=== PATIENT | female | born 1995 | race American Indian/Alaskan Native ===

== ENCOUNTER 2020-12-11 19:59 | Inpatient (IN) | payer OTHER ==
[2020-12-11] MEDS ORDERED: ACETAMINOPHEN 325 MG TAB PO PRN (20:39)
[2020-12-11] MEDS ORDERED: MINERAL OIL 30 ML ORAL LIQD PO PRN (20:39)
[2020-12-11] MEDS ORDERED: fentaNYL 100 MCG/2 ML INJ IV PRN (20:39)
[2020-12-11] MEDS ORDERED: TERBUTALINE 1 MG/1 ML INJ SUB-Q PRN (20:39)
[2020-12-11] MEDS ORDERED: ePHEDrine SULFATE 50 MG/1 ML INJ IV PRN (20:39)
[2020-12-11] MEDS ORDERED: hydrALAZINE 20 MG/1 ML INJ IV PRN (20:45)
[2020-12-11] MEDS ORDERED: MAGNESIUM SULFATE 4 GM/100 ML BAG IV ONE (20:46)
[2020-12-11] MEDS ORDERED: MAGNESIUM SULFATE 40GM/1000ML 40 GM/1,000 ML BAG IV SCH (21:00)
[2020-12-11] MEDS ORDERED: LIDOCAINE (2%) 20 MG/1 ML VIAL 20 ML MDV INFILTRATI ONE (21:00)
[2020-12-11] MEDS ORDERED: OXYTOCIN DRIP 30 UNITS/500 ML BAG IV SCH ×2 (21:00)
[2020-12-11 21:07] LABS: Hematocrit 33.6 % (30.3-42.9); Hemoglobin 11.1 gm/dl (10.1-14.3); Mean Corpuscular HGB Conc 33 % (30-34); Mean Corpuscular Volume 99 fl (79-97); Platelet Count 244 K/mm3 (140-440); Red Cell Distribution Width 14.7 % (13.2-15.2)
--- NOTE | 2020-12-11 21:08 | History and Physical Report ---
History of Present Illness Date of examination: 12/11/20 Date of admission: 12/11/2020 Chief complaint: Contractions History of present illness: 25 year old female presents to L&D with contractions at 40 weeks, 5 days gestation. Patient's BPs were noted to be elevated in triage so patient was admitted for augmentation of labor due to preeclampsia with severe features (by BP criteria). Patient received care at [facility]. records are not available but was able to look up records via computer. LMP 03/11/2020. EDC 12/06/2020. 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 labs are as follows: O+, antibody screen negative, rubella immune, varicella nonimmune, hepatitis B surface antigen negative, HIV negative, RPR nonreactive, pap smear LSIL, hemoglobin electrophoresis AA, AFP negative, 1 hour sugar test 134, gonorrhea negative, chlamydia negative, trichomonas negative, HSV 2 positive, GBS negative. Past History Past Medical History: other (heart murmur) Past Surgical History: other (EAB times 1) [facility] History: abnormal PAP smear (LSIL), herpes (positive HSV 2 serology (has been on Valtrex for suppression); denies lesions or prodromal symptoms), other (EAB times 1). denies: chlamydia, gonorrhea, hepatitis B, hepatitis C, HIV, syphilis, trichomonas Family/Genetic History: hypertension, other (prediabetes) Social history: single, smoking (former smoker but has not smoked during ), full code. denies: alcohol abuse, prescription drug abuse, IV drug use - Obstetrical History Expected Date of Delivery: 12/06/20 Actual Gestation: 40 Week(s) 5 Day(s) : 2 Para: 0 Hx # Term Pregnancies: 0 Number of Pregnancies: 0 Spontaneous Abortions: 0 Induced : 1 Number of Living Children: 0 Medications and Allergies Allergies Allergy/AdvReac Type Severity Reaction Status Date / Time No Known Allergies Allergy Verified 02/14/16 22:32 Home Medications Medication Instructions Recorded Confirmed Last Taken Type Ferrous Sulfate 325 mg PO BID 12/11/20 12/11/20 12/11/20 15:00 History Valacyclovir HCl [Valtrex] 1,000 mg PO DAILY 12/11/20 12/11/20 12/11/20 09:00 History Active Meds: Active Medications Acetaminophen (Acetaminophen 325 Mg Tab) 650 mg PO Q4H PRN PRN Reason: Pain, Mild (1-3) Ephedrine Sulfate (Ephedrine Sulfate 50 Mg/1 Ml Inj) 10 mg IV Q2M PRN PRN Reason: Hypotension Fentanyl (Fentanyl 100 Mcg/2 Ml Inj) 100 mcg IV Q2H PRN PRN Reason: Pain,Severe (7-10) LABOR PAIN Hydralazine HCl (Hydralazine 20 Mg/1 Ml Inj) 5 mg IV Q30MIN PRN PRN Reason: Hypertension Oxytocin/Sodium Chloride (Pitocin/Ns 30 Unit/500ml) 30 units in 500 mls @ 2 mls/hr IV TITR [facility]RYSTAL; Protocol Lactated Ringer's (Lactated Ringers) 1,000 mls @ 125 mls/hr IV DIRECT CHRYSTAL Oxytocin/Sodium Chloride (Pitocin/Ns 30 Unit/500ml) 30 units in 500 mls @ 40 mls/hr IV TITR CHRYSTAL; Protocol Magnesium Sulfate (Magnesium Sulfate 40gm/1000ml) 40 gm in 1,000 mls @ 50 mls/hr IV DIRECT CHRYSTAL Magnesium Sulfate (Magnesium Sulfate 4gm/100ml) 4 gm in 100 mls @ 300 mls/hr IV ONCE ONE Stop: 12/11/20 21:05 Labetalol HCl (Labetalol 100 Mg Tab) 200 mg PO BID CHRYSTAL Lidocaine (Lidocaine (2%) 20 Mg/1 Ml Vial 20 Ml Mdv) 20 ml INFILTRATI ONCE ONE Stop: 12/11/20 21:01 Mineral Oil (Mineral Oil 30 Ml Oral Liqd) 30 ml PO QHS PRN PRN Reason: Constipation Terbutaline Sulfate (Terbutaline 1 Mg/1 Ml Inj) 0.25 mg SUB-Q ONCE PRN PRN Reason: Hyperstimulation/Hypertonicity Valacyclovir HCl (Valacyclovir 500 Mg Tab) 500 mg PO BID CHRYSTAL Review of Systems All systems: negative (contractions) - Vital Signs Vital signs: Vital Signs Pulse BP 72 123/79 12/11/20 20:18 12/11/20 20:18 Temp Pulse Resp BP Pulse Ox 97.9 F 96 H 18 166/71 12/11/20 20:31 12/11/20 20:31 12/11/20 20:31 12/11/20 20:31 - Physical Exam Abdomen: Positive: normal appearance, soft. Negative: distention, tenderness, guarding, rigidity Genitourinary (Female): Positive: normal external genitalia, normal perenium. Negative: perineal/vulvar lesions Vagina: Positive: normal moisture Uterus: Positive: enlarged. Negative: tender Anus/Rectum: Positive: normal perianal skin Extremities: Negative: tenderness, edema - Obstetrical FHR: category 1 Uterine Contraction Monitor Mode: External Cervical Dilatation: 3 Cervical Effacement Percentage: 70 station: -2 Uterine Contraction Pattern: Irregular Uterine Contraction Intensity: Mild Results All other labs normal. Assessment and Plan A: at 40 weeks, 5 days gestation. Early labor. Preeclampsia with severe features (by BP criteria). GBS negative. HSV 2 positive serology. P: Admit. Continuous EFM. IV magnesium sulfate. Serial BPs; preeclamptic labs. Labetalol for control of BP. Hydralazine for severe range BPs. Continue Valtrex suppression of HSV 2. Pitocin augmentation of labor. Discussed the above plan with patient and her S.O. Patient states she is in agreement with this POC. Informed Dr. Benitez re: magnesium sulfate started for preeclampsia with severe features.
[2020-12-11 21:26] LABS: Alanine Aminotransferase 9 units/L (7-56); Albumin 3.7 g/dL (3.9-5); Blood Urea Nitrogen 7 mg/dL (7-17); Calcium 9.1 mg/dL (8.4-10.2); Hemolysis Index 17; Uric Acid 4.5 mg/dL (3.5-7.6)
[2020-12-11] MEDS: LACTATED RINGERS 1,000 ML IV SCH (21:27)
[2020-12-11 21:28] LABS: BUN/Creatinine Ratio 14
[2020-12-11 21:43] LABS: Amphetamine Screen,Urine Negative; Bacteria,Urine 1+ /HPF (Negative); Benzodiazepines Screen,Urine Negative; Bilirubin,Urine NEG (Negative); Blood,Urine NEG (Negative); Cannabinoid Screen,Urine Negative; Cocaine Screen,Urine Negative; Color,Urine Yellow (Yellow); Methadone Screen,Urine Negative; Mucus,Urine FEW /HPF; Opiate Screen,Urine Negative; WBC,Urine < 1.0 /HPF (0.0-6.0)
[2020-12-11] MEDS: valACYclovir 500 MG TAB PO SCH (22:31)
[2020-12-12] MEDS ORDERED: NALOXONE 2 MG/2 ML INJ IV PRN (01:42)
--- NOTE | 2020-12-12 01:42 | Anesthesia Consultation ---
Anesthesia Consult and Med Hx Date of service: 12/12/20 - Airway Anesthetic Teeth Evaluation: Good ROM Head & Neck: Adequate Mental/Hyoid Distance: Adequate Mallampati Class: Class II Intubation Access Assessment: Probably Good - Pulmonary Exam CTA: Yes - Cardiac Exam Cardiac Exam: RRR - Pre-Operative Health Status ASA Pre-Surgery Classification: ASA3 Proposed Anesthetic Plan: Epidural - Pulmonary Hx Asthma: No COPD: No Hx Pneumonia: No - Cardiovascular System Hx Hypertension: Yes - Central Nervous System Hx Seizures: No Hx Psychiatric Problems: No - Endocrine Hx Renal Disease: No Hx End Stage Renal Disease: No Hx Hypothyroidism: No Hx Hyperthyroidism: No - Hematic Hx Anemia: Yes Hx Sickle Cell Disease: No - Other Systems Hx Alcohol Use: No
[2020-12-12] MEDS ORDERED: fentaNYL-BUPIV 2 MCG/ML-0.125% 200 MCG/100 ML BAG EPIDURAL SCH (02:00)
--- NOTE | 2020-12-12 02:03 | Progress Note ---
Labor Epidural - Labor Epidural Start Time: 01:48 Stop Time: 01:58 Performed by:: SHEILA TRAYLOR Procedure: Patient is requesting epidural for labor pain. H&P, and labs reviewed. Procedure explained, questions answered, consent obtained. Patient in sitting position with blood pressure cuff and pulse ox on and working. Timeout performed immediately before start of procedure. Sterile betadine prep/drape. 3 mL 1% lidocaine skin wheal at L[3]-L[4]. 18-gauge Yoox Grouptead epidural needle advanced to [id number] with saline at [7] cm. 27-gauge spinal needle advanced until clear, free-flowing CSF. Intrathecal dexmedetomidine [5] mcg administered and needle removed. Epidural catheter advanced to [12] cm, negative aspiration for blood and csf, negative test dose 3 ml 1.5% lidocaine with epinephrine. Sterile steri-strips and tegaderm applied, followed by tape reinforcement. Patient tolerated procedure well.
[2020-12-12] MEDS: ePHEDrine SULFATE 50 MG/1 ML INJ IV PRN ×2 (02:19→02:46)
--- NOTE | 2020-12-12 04:46 | Event Note ---
Date: 12/12/20 Was notified by nurse at 04:05 AM of minimal FHR variability on FHR tracing. Nurse states patient's water broke at 11:50 PM with clear fluid and that patient now has an epidural. Performed SVE and found cervix is 6/80/-2 with fetus in OP position. Small FHR acceleration noted with SVE. Several early FHR decelerations noted. Patient has had IV fluid bolus and oxygen and lateral positioning. Patient is receiving magnesium sulfate. Contractions are every 2-6 minutes, uterus palpates soft between contractions. Consulted with Dr. Benitez re: FHR tracing at 04:15 AM and she viewed tracing and states minimal variability most likely due to magnesium sulfate and OK to allow labor to continue.
--- NOTE | 2020-12-12 08:09 | Event Note ---
Date: 12/12/20.
[2020-12-12] MEDS: valACYclovir 500 MG TAB PO SCH (09:57)
[2020-12-12] MEDS: LACTATED RINGERS 1,000 ML IV SCH (11:50)
[2020-12-12] MEDS ORDERED: miSOPROStol 200 MCG TAB ONE (13:07)
[2020-12-12] MEDS ORDERED: miSOPROStol 200 MCG TAB PR ONE (13:10)
[2020-12-12] MEDS ORDERED: LANOLIN/ZINC/DIMETHICONE (LANSINOH) 7 GM TP PRN (14:08)
[2020-12-12] MEDS ORDERED: WITCH HAZEL/ GLYCERIN PAD TP PRN (14:08)
[2020-12-12] MEDS ORDERED: MAGNESIUM HYDROXIDE (MOM) ORAL LIQD UDC PO PRN (14:08)
[2020-12-12] MEDS ORDERED: HYDROcodone/ACETAMINOPHEN 5-325 MG TAB PO PRN (14:08)
--- NOTE | 2020-12-12 14:14 | Procedure Note ---
OB Delivery Note - Delivery Date of Delivery: 12/12/20 Surgeon: MANDY RIVERA Estimated blood loss: other (400 cc) - Vaginal Intrapartum events: meconium, preeclampsia (preeclampsia with severe features (on magnesium sulfate)) Delivery induction: oxytocin Delivery monitor: external FHT, external uterine Route of delivery: Delivery placenta: manual Delivery cord: nuchal cord, 3 umbilical vessels Episiotomy: none Delivery laceration: 2nd degree Delivery repair: vicryl Anesthesia: local, epidural Delivery comments: Spontaneous vaginal delivery at 12:58 of liveborn male infant weighing 8 lb. 3 oz. over 2nd degree perineal laceration with apgars of 7/9. Had labor augmented for severe preeclampsia and was on magnesium sulfate during her labor and at time of delivery. Epidural anesthesia. Meconium stained amniotic fluid; NICU team present for delivery. of baby was atraumatic; nuchal cord times 1, reduced along body as baby delivered. Baby placed skin to skin with mom immediately after delivery. Spontaneous cry and respirations; baby bulb suctioned and dried with warm towels. 3 vessel cord double clamped and cut and baby taken to radiant warmer for further suctioning. Cord blood obtained. Vaginal bleeding noted shortly after delivery of baby; portion of membranes presenting; placenta presenting in pieces. EBL 400 cc. Manual removal of placenta and membranes performed at 13:05. IV Pitocin and rectal cytotec given. Fundus firmed with these medications and with bimaual uterine massage. Bedside US ordered and [employer] states she sees no retained products. Repair of 2nd degree perineal laceration with 2-0 vicryl under Lidocaine local. No other lacerations noted. Vaginal sweep negative. Sponge and instrument counts correct. Mother and baby stable. Placenta to path. IV antibiotics started for 24 hours due to manual removal of placenta. Patient to continue magnesium sulfate for 24 hours post delivery.
--- NOTE | 2020-12-12 14:14 | Ultrasound Report ---
ULTRASOUND PELVIS INDICATION / CLINICAL INFORMATION: CHECK FOR RETAINED PRODUCTS. TECHNIQUE: Transabdominal. Limited views were obtained of the uterus. Duplex Color Doppler used: No. COMPARISON: 12/10/2020. FINDINGS: UTERUS: Enlarged uterus consistent with provided history of recent status. No evidence of retained placental products within the endometrium. ADDITIONAL FINDINGS: None. IMPRESSION: 1. No retained placental products within the endometrium. 2. Enlarged uterus consistent with provided history of status. Signer Name: Feliz Vallejo MD Signed: 12/12/2020 2:10 PM Workstation Name: [id number]
[2020-12-12] MEDS ORDERED: GENTAMICIN 100 MG in SODIUM CHLORIDE 0.9% 100 ML IV SCH (14:15)
[2020-12-12] MEDS ORDERED: GENTAMICIN/NS 100 MG/100 ML 100 MG/100 ML BAG IV SCH (15:00)
[2020-12-12] MEDS: GENTAMICIN 100 MG in SODIUM CHLORIDE 0.9% 100 ML IV SCH ×2 (15:16→22:49)
[2020-12-12] MEDS: AMPICILLIN/NS 2 GM/100 ML 2 GM/100 ML BAG IV SCH ×2 (16:12→21:14)
[2020-12-12] MEDS: DOCUSATE SODIUM 100 MG CAP PO SCH ×2 (17:44→22:38)
[2020-12-12] MEDS: FERROUS SULFATE 325 MG TAB PO SCH (22:38)
[2020-12-13] MEDS ORDERED: LACTATED RINGERS 1,000 ML IV SCH (03:15)
[2020-12-13] MEDS: AMPICILLIN/NS 2 GM/100 ML 2 GM/100 ML BAG IV SCH ×3 (03:27→16:28)
[2020-12-13 03:49] LABS: Hematocrit 25.7 % (30.3-42.9); Hemoglobin 8.8 gm/dl (10.1-14.3)
[2020-12-13] MEDS: GENTAMICIN 100 MG in SODIUM CHLORIDE 0.9% 100 ML IV SCH ×2 (06:50→15:36)
[2020-12-13] MEDS: LACTATED RINGERS 1,000 ML IV SCH (07:11)
--- NOTE | 2020-12-13 11:42 | Progress Note ---
Assessment and Plan A: day 1 S/P . Preeclampsia with severe features. Anemia. P: Continue iron supplementation. Continue magnesium sulfate until 24 hours post delivery. Subjective - Subjective Date of service: 12/13/20 Principal diagnosis: day 1 S/P ; preeclampsia Interval history: day 1 S/P ; still receiving magnesium sulfate for preeclampsia with severe features. Patient denies headache, visual disturbance, chest pain, cough, shortness of breath, nausea or vomiting. Still has Guardado catheter. Eating withou difficulty. Passing gas. Patient reports: appetite normal, pain well controlled, flatus, no nauseated Bronson: doing well Objective - Vital Signs Latest vital signs: Vital Signs Temp Pulse Resp BP Pulse Ox 12/13/20 11:33 75 99 12/13/20 11:28 80 100 12/13/20 11:23 74 98 12/13/20 11:18 76 100 12/13/20 11:13 86 98 12/13/20 11:08 87 100 12/13/20 11:03 81 109/55 98 12/13/20 10:58 87 99 12/13/20 10:53 87 99 12/13/20 10:48 81 97 12/13/20 10:43 89 99 12/13/20 10:38 89 99 12/13/20 10:33 89 99 12/13/20 10:28 81 100 12/13/20 10:23 79 99 12/13/20 10:18 97 H 99 12/13/20 10:13 80 99 12/13/20 10:08 95 H 99 12/13/20 10:03 78 130/60 99 12/13/20 09:58 96 H 99 12/13/20 09:53 93 H 98 12/13/20 09:48 75 98 12/13/20 09:43 78 98 12/13/20 09:38 76 98 12/13/20 09:33 76 99 12/13/20 09:28 86 99 12/13/20 09:23 76 98 12/13/20 09:18 79 98 12/13/20 09:13 81 99 12/13/20 09:08 77 98 12/13/20 09:03 83 121/56 99 12/13/20 08:58 79 99 12/13/20 08:53 79 100 12/13/20 08:48 86 99 12/13/20 08:43 84 100 12/13/20 08:38 95 H 100 12/13/20 08:33 87 98 12/13/20 08:28 95 H 98 12/13/20 08:23 86 99 12/13/20 08:18 94 H 99 12/13/20 08:13 91 H 98 12/13/20 08:08 94 H 99 12/13/20 08:03 94 H 99 12/13/20 07:58 84 98 12/13/20 07:53 86 99 12/13/20 07:48 83 98 12/13/20 07:43 92 H 100 12/13/20 07:38 82 98 12/13/20 07:33 89 99 12/13/20 07:28 89 98 12/13/20 07:23 89 100 12/13/20 07:18 83 98 12/13/20 07:13 80 99 12/13/20 07:08 83 98 12/13/20 07:03 79 109/57 99 12/13/20 06:58 89 99 12/13/20 06:53 81 97 12/13/20 06:48 86 99 12/13/20 06:43 86 99 12/13/20 06:38 81 98 12/13/20 06:33 83 98 12/13/20 06:28 93 H 100 12/13/20 06:23 85 99 12/13/20 06:18 96 H 99 12/13/20 06:13 85 99 12/13/20 06:08 72 98 12/13/20 06:03 82 120/76 97 12/13/20 05:58 89 99 12/13/20 05:53 90 99 12/13/20 05:48 94 H 99 12/13/20 05:43 100 H 100 12/13/20 05:38 88 100 12/13/20 05:33 88 100 12/13/20 05:28 91 H 99 12/13/20 05:23 89 99 12/13/20 05:18 87 100 12/13/20 05:13 98 H 100 12/13/20 05:08 82 100 12/13/20 05:03 83 114/52 98 12/13/20 04:58 82 100 12/13/20 04:53 85 99 12/13/20 04:48 83 100 12/13/20 04:43 82 98 12/13/20 04:38 83 99 12/13/20 04:33 94 H 99 12/13/20 04:28 91 H 99 12/13/20 04:23 89 99 12/13/20 04:18 87 99 12/13/20 04:13 89 98 12/13/20 04:08 82 98 12/13/20 04:03 84 99 12/13/20 04:02 81 118/62 12/13/20 03:58 81 97 12/13/20 03:53 81 97 12/13/20 03:48 80 98 12/13/20 03:43 83 97 12/13/20 03:38 80 99 12/13/20 03:33 84 97 12/13/20 03:28 86 97 12/13/20 03:23 84 98 12/13/20 03:18 81 98 12/13/20 03:13 79 98 12/13/20 03:08 82 98 12/13/20 03:03 88 96 12/13/20 03:02 82 111/56 12/13/20 02:58 79 98 12/13/20 02:53 80 97 12/13/20 02:48 80 97 12/13/20 02:43 80 97 12/13/20 02:38 81 97 12/13/20 02:33 81 97 12/13/20 02:28 83 97 12/13/20 02:23 83 97 12/13/20 02:18 82 98 12/13/20 02:13 87 98 12/13/20 02:08 81 98 12/13/20 02:03 83 117/65 99 12/13/20 01:58 83 100 12/13/20 01:53 86 100 12/13/20 01:48 81 100 12/13/20 01:43 89 100 12/13/20 01:38 91 H 100 12/13/20 01:33 89 99 12/13/20 01:28 83 99 12/13/20 01:23 88 99 12/13/20 01:18 90 100 12/13/20 01:13 86 100 12/13/20 01:08 85 99 12/13/20 01:03 90 100 12/13/20 01:02 95 H 129/72 12/13/20 00:58 90 100 12/13/20 00:53 91 H 99 12/13/20 00:48 88 99 12/13/20 00:43 89 99 12/13/20 00:38 89 100 12/13/20 00:33 89 98 12/13/20 00:28 85 98 12/13/20 00:23 107 H 99 12/13/20 00:18 105 H 99 12/13/20 00:13 83 98 12/13/20 00:08 82 98 12/13/20 00:03 89 97 12/13/20 00:02 85 109/59 12/12/20 23:58 81 97 12/12/20 23:53 80 98 12/12/20 23:48 88 97 12/12/20 23:43 84 97 12/12/20 23:38 83 97 12/12/20 23:33 81 97 12/12/20 23:28 84 97 12/12/20 23:23 80 98 12/12/20 23:18 78 98 12/12/20 23:13 80 99 12/12/20 23:08 79 99 12/12/20 23:03 74 100 12/12/20 23:02 78 119/55 12/12/20 22:58 80 100 12/12/20 22:53 92 H 100 12/12/20 22:48 87 100 12/12/20 22:43 89 100 12/12/20 22:38 89 100 12/12/20 22:33 85 100 12/12/20 22:28 87 100 12/12/20 22:23 85 100 12/12/20 22:18 86 100 12/12/20 22:13 79 100 12/12/20 22:08 85 100 12/12/20 22:03 89 100 12/12/20 22:02 84 112/70 12/12/20 21:58 85 100 12/12/20 21:53 87 100 12/12/20 21:48 87 100 12/12/20 21:43 88 100 12/12/20 21:38 89 100 12/12/20 21:33 93 H 100 12/12/20 21:28 92 H 100 12/12/20 21:23 91 H 100 12/12/20 21:18 97 H 100 12/12/20 21:13 84 100 12/12/20 21:08 90 100 12/12/20 21:03 94 H 100 12/12/20 21:02 91 H 143/90 12/12/20 20:58 96 H 100 12/12/20 20:53 92 H 99 12/12/20 20:48 100 H 100 12/12/20 20:43 90 100 12/12/20 20:38 87 100 12/12/20 20:33 87 100 12/12/20 20:28 93 H 100 12/12/20 20:23 88 100 12/12/20 20:18 91 H 100 12/12/20 20:13 90 100 12/12/20 20:08 89 100 12/12/20 20:03 88 100 12/12/20 19:58 94 H 100 12/12/20 19:53 88 100 12/12/20 19:49 98.6 F 89 18 136/70 12/12/20 19:48 88 100 12/12/20 19:43 91 H 100 12/12/20 19:38 93 H 99 12/12/20 19:34 101 H 124/67 12/12/20 19:33 102 H 100 12/12/20 19:28 93 H 98 12/12/20 19:23 94 H 100 12/12/20 19:19 96 H 121/66 12/12/20 19:18 91 H 100 12/12/20 19:13 93 H 100 12/12/20 19:08 91 H 100 12/12/20 19:04 96 H 142/66 12/12/20 19:03 98 H 99 12/12/20 18:58 101 H 100 12/12/20 18:53 103 H 100 12/12/20 18:49 96 H 133/59 12/12/20 18:48 92 H 99 12/12/20 18:43 96 H 100 12/12/20 18:38 100 H 100 12/12/20 18:34 87 141/67 12/12/20 18:33 90 100 12/12/20 18:28 88 100 12/12/20 18:23 86 100 12/12/20 18:19 86 148/72 12/12/20 18:18 86 99 12/12/20 18:13 85 100 12/12/20 18:08 89 100 12/12/20 18:04 85 145/67 12/12/20 18:03 87 100 12/12/20 17:58 89 100 12/12/20 17:53 95 H 100 12/12/20 17:49 84 141/67 12/12/20 17:48 86 100 12/12/20 17:43 91 H 100 12/12/20 17:38 87 100 12/12/20 17:34 87 136/64 12/12/20 17:33 88 100 12/12/20 17:28 87 99 12/12/20 17:23 91 H 100 12/12/20 17:19 85 137/73 12/12/20 17:18 88 100 12/12/20 17:13 94 H 99 12/12/20 17:08 96 H 100 12/12/20 17:04 93 H 137/85 12/12/20 17:03 92 H 100 12/12/20 16:58 88 100 12/12/20 16:53 92 H 100 12/12/20 16:49 97 H 139/79 12/12/20 16:48 102 H 100 12/12/20 16:43 95 H 100 12/12/20 16:38 86 100 12/12/20 16:34 87 133/81 12/12/20 16:33 85 100 12/12/20 16:28 92 H 100 12/12/20 16:23 90 100 12/12/20 16:19 86 128/74 12/12/20 16:18 94 H 100 12/12/20 16:13 88 100 12/12/20 16:08 90 100 12/12/20 16:04 85 147/79 12/12/20 16:03 87 100 12/12/20 15:58 84 99 12/12/20 15:53 80 100 12/12/20 15:49 82 139/76 12/12/20 15:48 83 100 12/12/20 15:43 85 100 12/12/20 15:38 88 100 12/12/20 15:34 84 143/73 12/12/20 15:33 85 100 12/12/20 15:28 87 100 12/12/20 15:23 86 100 12/12/20 15:19 86 136/69 12/12/20 15:18 85 100 12/12/20 15:13 82 100 12/12/20 15:08 79 100 12/12/20 15:04 79 132/74 12/12/20 15:03 80 100 12/12/20 15:00 98.3 F 12/12/20 14:58 80 99 12/12/20 14:53 99 H 100 12/12/20 14:49 88 133/79 12/12/20 14:48 92 H 99 12/12/20 14:43 90 99 12/12/20 14:38 83 100 12/12/20 14:34 84 136/65 12/12/20 14:33 89 100 12/12/20 14:20 98 H 143/74 12/12/20 14:19 82 100 12/12/20 14:14 89 99 12/12/20 14:09 90 99 12/12/20 14:04 87 136/63 99 12/12/20 13:59 95 H 100 12/12/20 13:54 94 H 100 12/12/20 13:49 91 H 132/64 100 12/12/20 13:44 94 H 100 12/12/20 13:39 95 H 100 12/12/20 13:34 99 H 133/62 100 12/12/20 13:29 99 H 100 12/12/20 13:24 102 H 100 12/12/20 13:21 94 H 94 12/12/20 13:19 93 H 127/61 93 12/12/20 13:15 96 H 94 12/12/20 13:14 97 H 100 12/12/20 13:09 111 H 100 12/12/20 13:06 20 L 12/12/20 13:04 115 H 154/76 99 12/12/20 12:59 108 H 100 12/12/20 12:54 109 H 100 12/12/20 12:49 110 H 100 12/12/20 12:44 107 H 100 12/12/20 12:39 107 H 100 12/12/20 12:34 130 H 148/84 100 12/12/20 12:29 105 H 100 12/12/20 12:24 129 H 100 12/12/20 12:19 105 H 140/84 99 12/12/20 12:14 102 H 100 12/12/20 12:09 98 H 100 12/12/20 12:04 107 H 126/69 97 12/12/20 11:59 110 H 100 12/12/20 11:54 95 H 100 12/12/20 11:49 98 H 125/59 100 12/12/20 11:44 94 H 100 12/12/20 11:39 100 H 99 Intake and Output 12/12/20 12/13/20 12/13/20 23:59 07:59 15:59 Intake Total 1660 1160 Output Total 2800 1850 Balance -1140 -690 Intake: IV 1300 200 AMPICILLIN/NS 2 GM/100 ML 200 100 2 gm In 100 ml @ 100 mls /hr IV Q6H [facility]AL Rx#: [id number] Gentamicin 100 mg In NaCl 100 0.9% 100 ml @ 195.122 mls/hr IV Q8H [facility] Rx#: [id number] Lactated Ringers 1,000 ml 1000 @ 125 mls/hr IV DIRECT CH[facility]STAL Rx#:[id number] Right Distal Port Hand 100 Oral 360 960 Output: Urine 2800 1850 Indwelling Catheter 2800 1850 Other: Total, Intake Amount 360 360 Total, Output Amount 400 150 - Exam Cardiovascular: Present: Regular rate, Other (murmur heard (pt. has a known heart murmur and has seen cardiology during )) Lungs: Present: Clear to auscultation Abdomen: Present: normal appearance, soft, normal bowel sounds. Absent: distention, tenderness, guarding, rigidity Uterus: Present: normal, firm, fundal height below umbilicus. Absent: bogginess, tenderness Extremities: Present: normal. Absent: tenderness, edema - Labs Labs: Abnormal lab results 12/12/20 12/12/20 12/13/20 Range/Units 14:27 21:07 03:39 Hgb (10.1-14.3) gm/dl Hct (30.3-42.9) % Magnesium 3.90 H 3.80 H 3.80 H (1.7-2.3) mg/dL 12/13/20 12/13/20 Range/Units 03:39 09:51 Hgb 8.8 L (10.1-14.3) gm/dl Hct 25.7 L D (30.3-42.9) % Magnesium 3.40 H (1.7-2.3) mg/dL
[2020-12-13] MEDS: DOCUSATE SODIUM 100 MG CAP PO SCH ×2 (12:09→22:07)
[2020-12-13] MEDS: FERROUS SULFATE 325 MG TAB PO SCH ×2 (12:09→22:07)
--- NOTE | 2020-12-13 14:44 | Post Anesthesia Evaluation ---
- Post Anesthesia Evaluation Patient Participated: Yes Airway Patent: Yes Stable Respiratory Function: Yes Nausea/Vomiting: No Temp > 96.8F: Yes Pain Manageable: Yes Adequeate Hydration: Yes Anesthesia Complications: No Block Receding Appropriately: Yes
[2020-12-13 19:47] LABS: Hematocrit 27.1 % (30.3-42.9); Hemoglobin 8.8 gm/dl (10.1-14.3); Mean Corpuscular HGB Conc 33 % (30-34); Mean Corpuscular Volume 100 fl (79-97); Platelet Count 218 K/mm3 (140-440); Red Blood Count 2.71 M/mm3 (3.65-5.03)
[2020-12-13 20:07] LABS: Alanine Aminotransferase 9 units/L (7-56); Albumin 3.2 g/dL (3.9-5); BUN/Creatinine Ratio 14; Blood Urea Nitrogen 7 mg/dL (7-17); Calcium 8.1 mg/dL (8.4-10.2); Hemolysis Index 8
[2020-12-13 20:56] LABS: RBC Morphology Normal; Total Cells Counted 100
--- NOTE | 2020-12-14 07:27 | Progress Note ---
Assessment and Plan A: day 2 S/P . Anemia. BPs normal now. P: Discharge OK'd by Dr. Benitez. Discussed with patient discharge instructions and warning signs. Advised patient to continue taking her vitamins and iron supplements at home. Advised patient to avoid intercourse, driving, lifting, and housework. Advised patient to continue taking Labetalol 200 mg po BID at home and Rx was sent to patient's pharmacy. Advised patient to follow up at [facility] in 2 days for BP check. Patient voiced understanding of all instructions. Subjective - Subjective Date of service: 12/14/20 Principal diagnosis: day 2 S/P ; preeclampsia Interval history: Patient cleared for discharge today by Dr. Benitez. Patient has no complaints today; feels good and wants to go home. Patient reports: appetite normal, voiding normally, pain well controlled, flatus, ambulating normally, no dizzy ambulation, no nauseated [place]: doing well Objective - Vital Signs Latest vital signs: Vital Signs Temp Pulse Resp BP BP BP Pulse Ox 12/14/20 04:51 98.0 F 76 20 117/52 99 12/14/20 00:30 98.1 F 87 18 119/43 100 12/13/20 22:10 98.8 F 78 18 118/60 12/13/20 22:06 78 118/60 12/13/20 14:10 98.5 F 79 18 109/61 100 12/13/20 12:17 64 90 12/13/20 12:13 84 99 12/13/20 12:10 88 144/55 12/13/20 12:09 94 H 144/55 12/13/20 12:08 83 99 12/13/20 12:03 82 118/56 99 12/13/20 11:58 78 98 12/13/20 11:53 86 98 12/13/20 11:48 81 99 12/13/20 11:43 80 100 12/13/20 11:38 88 99 12/13/20 11:33 75 99 12/13/20 11:28 80 100 12/13/20 11:23 74 98 12/13/20 11:18 76 100 12/13/20 11:13 86 98 12/13/20 11:08 87 100 12/13/20 11:03 81 109/55 98 12/13/20 10:58 87 99 12/13/20 10:53 87 99 12/13/20 10:48 81 97 12/13/20 10:43 89 99 12/13/20 10:38 89 99 12/13/20 10:33 89 99 12/13/20 10:28 81 100 12/13/20 10:23 79 99 12/13/20 10:18 97 H 99 12/13/20 10:13 80 99 12/13/20 10:08 95 H 99 12/13/20 10:03 78 130/60 99 12/13/20 09:58 96 H 99 12/13/20 09:53 93 H 98 12/13/20 09:48 75 98 12/13/20 09:43 78 98 12/13/20 09:38 76 98 12/13/20 09:33 76 99 12/13/20 09:28 86 99 12/13/20 09:23 76 98 12/13/20 09:18 79 98 12/13/20 09:13 81 99 12/13/20 09:08 77 98 12/13/20 09:03 83 121/56 99 12/13/20 09:00 98 F 12/13/20 08:58 79 99 12/13/20 08:53 79 100 12/13/20 08:48 86 99 12/13/20 08:43 84 100 12/13/20 08:38 95 H 100 12/13/20 08:33 87 98 12/13/20 08:28 95 H 98 12/13/20 08:23 86 99 12/13/20 08:18 94 H 99 12/13/20 08:13 91 H 98 12/13/20 08:08 94 H 99 12/13/20 08:03 94 H 99 12/13/20 07:58 84 98 12/13/20 07:53 86 99 12/13/20 07:48 83 98 12/13/20 07:43 92 H 100 12/13/20 07:38 82 98 12/13/20 07:33 89 99 12/13/20 07:28 89 98 Intake and Output 12/13/20 12/13/20 12/14/20 15:59 23:59 07:59 Intake Total 100 300 500 Output Total 1500 300 Balance 100 -1200 200 Intake: IV 100 100 100 AMPICILLIN/NS 2 GM/100 ML 100 2 gm In 100 ml @ 100 mls /hr IV Q6H [facility] Rx#: [id number] Right Distal Port Hand 100 100 Oral 200 400 Output: Urine 1500 300 Indwelling Catheter 1500 300 Other: Total, Intake Amount 200 200 Total, Output Amount 900 300 # Voids Indwelling Catheter 1 - Exam Cardiovascular: Present: Regular rate, Other (murmur heard (pt. has known heart murmur and has already been evaluated)) Lungs: Present: Clear to auscultation Abdomen: Present: normal appearance, soft. Absent: distention, tenderness, guarding, rigidity Uterus: Present: normal, firm, fundal height below umbilicus. Absent: bogginess, tenderness Extremities: Present: normal. Absent: tenderness, edema - Labs Labs: Abnormal lab results 12/13/20 12/13/20 12/13/20 Range/Units 09:51 19:20 19:20 WBC 14.0 H (4.5-11.0) K/mm3 RBC 2.71 L (3.65-5.03) M/mm3 Hgb 8.8 L (10.1-14.3) gm/dl Hct 27.1 L (30.3-42.9) % MCV 100 H (79-97) fl MCH 33 H (28-32) pg Seg Neuts % (Manual) 81.0 H (40.0-70.0) % Lymphocytes % (Manual) 11.0 L (13.4-35.0) % Monocytes % (Manual) 8.0 H (0.0-7.3) % Seg Neutrophils # Man 11.3 H (1.8-7.7) K/mm3 Monocytes # (Manual) 1.1 H (0.0-0.8) K/mm3 Sodium 135 L (137-145) mmol/L Creatinine 0.5 L (0.6-1.2) mg/dL Calcium 8.1 L (8.4-10.2) mg/dL Magnesium 3.40 H (1.7-2.3) mg/dL Alkaline Phosphatase 140 H (35-129) units/L Total Protein 5.2 L D (6.3-8.2) g/dL Albumin 3.2 L (3.9-5) g/dL
--- NOTE | 2020-12-14 07:31 | Discharge Summary ---
Providers - Providers Date of Admission: 12/11/20 20:41 Date of discharge: 12/14/20 Attending physician: KAT ANGEL Primary care physician: KAT ANGEL Hospitalization Reason for admission: other (augmentation of labor) Delivery: Laceration: 2nd degree Other procedures: none complications: none Discharge diagnosis: IUP at term delivered baby: male Pertinent studies: Labs Hospital course: Stable hospital course Condition at discharge: Good Disposition: DC-01 TO HOME OR SELFCARE - Discharge Diagnoses (1) Term delivered Status: Acute (2) Anemia Status: Acute Plan - Provider Discharge Summary Activity: routine, no sex for 6 weeks, no heavy lifting 4 weeks, no strenuous exercise Diet: routine Instructions: routine Additional instructions: Continue taking your vitamins and iron at home. Continue taking Labetalol 200 mg by mouth every 12 hours; Rx has been sent to your pharmacy. Follow up at [facility] in 2 days for a BP check. Call your doctor immediately for: * Fever > 100.5 * Heavy vaginal bleeding ( >1 pad per hour) * Severe persistent headache * Shortness of breath * Reddened, hot, painful area to leg or breast - Follow up plan Follow up: KAT ANGEL MD [Primary Care Provider] - 48 Hours
[2020-12-14] MEDS: DOCUSATE SODIUM 100 MG CAP PO SCH (10:19)
[2020-12-14] MEDS: FERROUS SULFATE 325 MG TAB PO SCH (10:19)
[2020-12-14 14:22] VITALS: BP 115/63
== END 2020-12-14 12:25 | disposition home or self-care (01) | DRG 775 ==
LOC: TRG 19:59 → APU 20:00 → TRG 20:39 → LD 20:41 → OB 12-13 14:08
PROVIDERS: ADMIT Obstetrics & Gynecology; ATTEND Obstetrics & Gynecology
PROC: 10E0XZZ Delivery of Products of Conception, External Approach (ICD-10-PCS; principal; 2020-12-12)
PROC: 0KQM0ZZ Repair Perineum Muscle, Open Approach (ICD-10-PCS; 2020-12-12)
PROC: 3E0R3BZ Introduction of Anesthetic Agent into Spinal Canal, Percutaneous Approach (ICD-10-PCS; 2020-12-12)
PROC: 00HU33Z Insertion of Infusion Device into Spinal Canal, Percutaneous Approach (ICD-10-PCS; 2020-12-12)
PROC: 3E0P7VZ Introduction of Hormone into Female Reproductive, Via Natural or Artificial Opening (ICD-10-PCS; 2020-12-12)
DX: O14.14 Severe pre-eclampsia complicating childbirth (principal); O48.0 Post-term pregnancy; Z3A.40 40 weeks gestation of pregnancy; Z37.0 Single live birth; O70.1 Second degree perineal laceration during delivery; O99.02 Anemia complicating childbirth; D64.9 Anemia, unspecified; Z79.899 Other long term (current) drug therapy; Z20.822 Contact with and (suspected) exposure to COVID-19
CPT/HCPCS: 36415; 59025; 76815; 76819; 76857; 80053; 80307; 81001; 83615; 83735; 84550; 85007; 85014; 85018; 85025; 85027; 86592; 86850; 86900; 86901; 88307; G0378; J0290; J1580; J2590; J3475; J7120; U0003